=== PATIENT | female | born 1995 | race Caucasian/White ===

== ENCOUNTER 2021-01-28 15:01 | Inpatient (IN) | payer BC ==
[~2021-01-28] VITALS: Ht 157.5 cm; Wt 77.3 kg
[2021-01-28] VITALS (27 sets, daily range): BP systolic 117–163; BP diastolic 57–92; PULSE 61–88; TEMP 98.4–99.1
--- NOTE | 2021-01-28 15:30 | NUR ---
1510- Pt arrives on unit ambulatory with , sent over from the office with SROM. Pt thinks she started leaking on Tuesday01/25/21. Pt denies UCs, VB. +FM per Pt. Pt very tearful, upset because she was planning on a natural, unmedicated delivery. Pt into bathroom to change into gown. 1525- Assessment completed. IV start without difficulty, labs obtained. Consent forms explained and signed.
[2021-01-28] MEDS ORDERED: PRENATAL TABLET PO (15:31)
[2021-01-28] MEDS ORDERED: MAGNESIUM500 MG PO (15:32)
[2021-01-28] MEDS ORDERED: PROBIOTIC ACID1 EAC3 PO (15:32)
[2021-01-28 15:45] LABS: BASO % 0.3 % (0.0-2.0); EOS # 0.1 (0.0-0.7); EOS % 0.6 % (0-4.0); GRAN # 8.3 (1.4-6.5); GRAN % 74.2 % (42.2-75.2); HEMATOCRIT 42.1 % (37.0-47.0); HEMOGLOBIN 14.3 g/dl (12.5-16.0); LYMPH # 2.1 (1.2-3.4); LYMPH % 19.2 % (20.0-51.0); MEAN CELL VOLUME 92 fl (80.0-100.0); MEAN CORPUSCULAR HEMOGLOBIN 31 pg (27.0-31.0); MEAN CORPUSCULAR HGB CONC 34 g/dl (33.0-37.0); MEAN PLATELET VOLUME 11.2 fl (7.4-10.4); MONO # 0.6 (0.1-0.6); MONO % 5.2 % (1.7-9.3); PLATELET COUNT 225 K/mm3 (130-400); RED BLOOD COUNT 4.57 M/mm3 (4.10-5.30); REDCELL DISTRIBUTION WIDTH-CV 12.1 % (11.5-14.5)
--- NOTE | 2021-01-28 18:20 | NUR ---
Report received from Blane BOYD. Pt wanting birthing ball. Pt off the monitor to use restroom. 183: Monitors reapplied. Pt on birthing ball. Plan of care explained. Pt and denies questions at this time. 1857: updated on pts status and new orders received. See physican notification. 1999: Pt returned to bed.
[2021-01-28 20:42] LABS: ALANINE AMINOTRANSFERASE 20 U/L (4-34); ALBUMIN 3.4 gm/dL (3.5-5.0); ANION GAP 6 mmol/L (7-16); AST,SGOT 25 U/L (15-37); BILIRUBIN,TOTAL < 0.1 mg/dL (0.0-1.0); BLOOD UREA NITROGEN 10 mg/dL (7-17); CALCIUM 8.8 mg/dL (8.4-10.2); CARBON DIOXIDE 22 mmol/L (22-30); CHLORIDE 105 mmol/L (98-107); CREATININE, serum 0.48 (0.52-1.25); GLUCOSE 82 mg/dL (74-106); POTASSIUM 4.2 mmol/L (3.4-5.0); SODIUM 132 mmol/L (137-145); TOTAL PROTEIN 6.3 gm/dL (6.4-8.2)
[2021-01-28 20:43] LABS: ALKALINE PHOSPHATASE 137 U/L (50-136)
[2021-01-28 21:01] LABS: COLLECTION METHOD CLEAN CATCH
[2021-01-28 21:07] LABS: PH 6 (5-8); SQUAMOUS EPITHELIAL 0-2 /hpf; URINE APPEARANCE Clear; URINE BACTERIA None Seen /hpf; URINE BILIRUBIN Negative (NEGATIVE); URINE BLOOD Negative (NEGATIVE); URINE COLOR Yellow; URINE GLUCOSE Negative (NEGATIVE); URINE KETONE Trace (NEGATIVE); URINE LEUKOCYTE ESTERASE Negative (NEGATIVE); URINE NITRATE Negative (NEGATIVE); URINE PROTEIN(semi-quant) Negative (NEGATIVE); URINE UROBILINOGEN Negative (NEGATIVE); URINE WBC 0-2 /hpf
[2021-01-29] VITALS (76 sets, daily range): BP systolic 107–169; BP diastolic 55–102; PULSE 49–116; TEMP 97.8–98.6
--- NOTE | 2021-01-29 06:25 | NUR ---
Bedside report received from Sonja BOYD. Patient resting in bed and has no needs at this time. 0647: Dr. Charles updated and orders to turn pitocin off for 30 minutes and let patient eat a little, turn pitocin back on at 2mu/hr. 0655: Pitocin turned off. Patient off montiors to shower and snack. 0740: Patient back on monitors and pitocin started at 2mU/hr.
--- NOTE | 2021-01-29 12:20 | NUR ---
Dr. Charles orders for patient to be checked. SVE- // and forebag felt. Dr. Charles in with another delivery and updated. Dr. Saavedra at nurses station and states she can assist by breaking forebag. Dr. Charles orders to for Dr. Saavedra to assist and to keep pitocin on. 1245: Dr. Saavedra at bedside and plan of care discussed. SVE per physician and forebag AROM at this time with clear fluid noted. 1300: Patient off monitors to void and more uncomfortable with contractions at this time. 1350: Patient on ball and standing intermittently. Patient on bed in knees chest and back to birthing ball.
--- NOTE | 2021-01-29 14:50 | NUR ---
Patient very uncomfortable with contractions and intermittently vomitting. Patient assisted. 1500: Difficulty tracing FHR due to mother vomitting at this time. Monitor adjusted. 1620: Dr. Charles at bedside and assessing patient and FHR. SVE-/ and plan of care discussed. 1630: Patient requests epidural at this time and Estela Brooks CRNA notified. 1640: Patient sat up on edge of bed and Estela Brooks CRNA at bedside. Difficulty tracing FHR due to maternal position. 1658: Test dose given and patient tolerates well. 1730: Gunn catheter placed and SVE /-. 1740: Contraction monitor not tracing correctly. Patient left lateral and resting. 1755: Contraction monitor replaced. 1830: Bedside report given to Radha BOYD.
--- NOTE | 2021-01-29 20:15 | NUR ---
Pt in in [facility] with peanut ball. States "I had my help me turn.""
--- NOTE | 2021-01-29 23:48 | NUR ---
Dr Charles into room, assesses/coaches pushing. [address] Charles.
[2021-01-30] VITALS (11 sets, daily range): BP systolic 113–136; BP diastolic 53–79; PULSE 74–117; TEMP 97.7–99.2
--- NOTE | 2021-01-30 00:10 | NUR ---
Placenta delivers spont and intact with 3 vessell cord. Ptiocin gtt to bolus rate. 0024 perineal repair complete, pericare done, ice pack to perineum, bed together.
[2021-01-30 06:18] LABS: MEAN CELL VOLUME 91 fl (80.0-100.0); MEAN CORPUSCULAR HGB CONC 34 g/dl (33.0-37.0); MEAN PLATELET VOLUME 10.9 fl (7.4-10.4); PLATELET COUNT 243 K/mm3 (130-400); RED BLOOD COUNT 3.69 M/mm3 (4.10-5.30); REDCELL DISTRIBUTION WIDTH-CV 12.1 % (11.5-14.5)
[2021-01-30 06:32] LABS: HEMATOCRIT 33.5 % (37.0-47.0); HEMOGLOBIN 11.5 g/dl (12.5-16.0); MEAN CORPUSCULAR HEMOGLOBIN 31 pg (27.0-31.0)
--- NOTE | 2021-01-30 10:33 | NUR ---
Initil visit; Patient out of room, [employer] Repairer left card of congratulations for the of their son and information regarding the availability of spiritual care at [facility].
[2021-01-31] VITALS (7 sets, daily range): BP systolic 116–147; BP diastolic 67–99; PULSE 65–91; TEMP 97.7–98.4
[2021-02-01 09:00] VITALS: BP 134/79; PULSE 88; TEMP 97.1
[2021-02-01] MEDS ORDERED: IBU800 M1 PO (10:09)
--- NOTE | 2021-02-01 14:48 | NUR ---
1448-Reviewed discharge instructions. Denies questions. Reviewed follow up appointments. Discharged to [facility] status.
== END 2021-02-01 14:48 | disposition home or self-care (01) | DRG 807 ==
LOC: LDR 15:01 → OB 01-30 03:45
PROVIDERS: ADMIT Student in an Organized Health Care Education/Training Program
PROC: 10E0XZZ Delivery of Products of Conception, External Approach (ICD-10-PCS; principal; 2021-01-28)
PROC: 0KQM0ZZ Repair Perineum Muscle, Open Approach (ICD-10-PCS; 2021-01-28)
PROC: 10907ZC Drainage of Amniotic Fluid, Therapeutic from Products of Conception, Via Natural or Artificial Opening (ICD-10-PCS; 2021-01-28)
PROC: 3E033VJ Introduction of Other Hormone into Peripheral Vein, Percutaneous Approach (ICD-10-PCS; 2021-01-28)
DX: O42.913 Preterm premature rupture of membranes, unspecified as to length of time between rupture and onset of labor, third trimester (principal); Z37.0 Single live birth; O70.1 Second degree perineal laceration during delivery; Z3A.36 36 weeks gestation of pregnancy; Z3A.37 37 weeks gestation of pregnancy
CPT/HCPCS: J0702; J2540; J2590; J7120